=== PATIENT | female | born 1980 | race Caucasian/White ===

== ENCOUNTER 2018-01-04 16:36 | Emergency (ER) | payer MEDICAID ==
[~2018-01-04] VITALS: Ht 172.7 cm; Wt 62.7 kg
[2018-01-04 16:38] VITALS: BP 124/81
[2018-01-04] MEDS ORDERED: IBUPROFEN 200 MG TABLET ONE (16:56)
[2018-01-04] MEDS ORDERED: IBUPROFEN 200 MG TABLET PO ONE (17:00)
== END 2018-01-04 17:31 | disposition home or self-care (01) ==
LOC: ED 17:00
DX: K02.9 Dental caries, unspecified (principal); F17.200 Nicotine dependence, unspecified, uncomplicated
CPT/HCPCS: 93005; 99283

== ENCOUNTER 2019-09-10 02:15 | Emergency (ER) | payer SELFPAY ==
[~2019-09-10] VITALS: Ht 172.7 cm; Wt 62.1 kg
[2019-09-10 02:19] VITALS: BP 121/74
== END 2019-09-10 03:56 | disposition home or self-care (01) ==
LOC: ED 03:33
DX: K08.89 Other specified disorders of teeth and supporting structures (principal); F17.210 Nicotine dependence, cigarettes, uncomplicated
CPT/HCPCS: 99283

== ENCOUNTER 2020-03-18 01:39 | Emergency (ER) | payer MEDICAID ==
[~2020-03-18] VITALS: Ht 172.7 cm; Wt 62.4 kg
[2020-03-18 04:36] LABS: ALBUMIN 3.7 g/dL (3.4-5.0); ANION GAP 4 mmol/L (5-15); CALCIUM 8.9 mg/dL (8.5-10.1); CHLORIDE 106 mmol/L (98-107); CREATININE 0.64 mg/dL (0.55-1.02)
[2020-03-18 04:57] LABS: MEAN CORPUSCULAR VOLUME 74.2 fL (80-100); MEAN PLATELET VOLUME 7.8 fL (7.4-10.4); PLATELET COUNT 376 x10^3/uL (130-400); RED BLOOD COUNT 4.91 x10^6/uL (3.82-5.3); RED CELL DISTRIBUTION WIDTH 17.2 % (9.6-15.2)
[2020-03-18 05:34] LABS: MD YES
[2020-03-18 05:52] LABS: <PLATELET ESTIMATE> ADEQUATE; <PLT MORPHOLOGY> NORMAL PLT MORPH; ANISOCYTOSIS 1+; LYMPH#(MANUAL) 2.04 x10^3/uL (1-3.4); LYMPHS% (MANUAL) 34 % (22-44); MICROCYTOSIS 1+; MONOS#(MANUAL) 0.24 x10^3/uL (0.3-2.7); MONOS% (MANUAL) 4 % (2-9); SEG#(MANUAL) 3.72 x10^3/uL (1.8-6.8); SEGS% (MANUAL) 62 % (42-75)
[2020-03-18 06:16] VITALS: BP 114/60
== END 2020-03-18 06:20 | disposition home or self-care (01) ==
LOC: ED 04:46
DX: O36.4XX0 Maternal care for intrauterine death, not applicable or unspecified (principal); Z3A.20 20 weeks gestation of pregnancy
CPT/HCPCS: 36415; 76801; 80048; 82040; 84702; 85025; 86901; 99284

== ENCOUNTER 2021-01-27 07:13 | Emergency (ER) | payer MEDICAID ==
[~2021-01-27] VITALS: Ht 172.7 cm; Wt 80.1 kg
[2021-01-27 07:18] VITALS: BP 109/66
--- NOTE | 2021-01-27 07:24 | NUR ---
PT AMBULATORY TO ROOM FROM TRIAGE, CONNECTED TO MONITORS. PT C/O TOP FRONT DENTAL PAIN. PT STATES SHE NEEDS THEM PULLED BUT THE PAIN IS UNBEARABLE RIGHT NOW. CALL LIGHT WITHIN REACH.
--- NOTE | 2021-01-27 07:30 | NUR ---
PA AT BS
[2021-01-27] MEDS ORDERED: HYDROcodone/APAP 5/325 TABLET ONE (07:45)
[2021-01-27] MEDS ORDERED: HYDROcodone/APAP 5/325 TABLET PO ONE (08:00)
--- NOTE | 2021-01-27 08:07 | NUR ---
Patient given discharge instructions and rx, they have confirmed that they understand the instructions. Patient ambulatory with steady gait.
== END 2021-01-27 08:09 | disposition home or self-care (01) ==
LOC: ED 07:48
DX: K04.7 Periapical abscess without sinus (principal); K02.9 Dental caries, unspecified
CPT/HCPCS: 99283